=== PATIENT | female | born 1975 | race Caucasian/White ===

== ENCOUNTER 2018-05-14 10:26 | Inpatient (IN) | payer OTHER ==
[2018-05-14] MEDS ORDERED: NACL 0.9% 3 ML SYG IV (11:00)
[2018-05-14] MEDS ORDERED: ONDANSETRON 4 MG INJ IV (11:00)
[2018-05-14] MEDS ORDERED: MAGNESIUM HYDROXIDE 30ML CUP PO (11:00)
[2018-05-14] MEDS ORDERED: ACETAMINOPHEN 325 MG TAB PO (11:00)
[2018-05-14 12:16] LABS: ADD MAN DIFF? NO
[2018-05-14 12:20] LABS: BASOPHILS % 0.5 % (0.0-2.0); EOSINOPHILS # 0.1 10^3/ul (0.0-0.5); EOSINOPHILS % 2.5 % (0.0-7.0); HEMOGLOBIN 12.2 g/dl (12.0-16.0); LYMPHOCYTES # 1.6 10^3/ul (0.8-2.9); LYMPHOCYTES % 37.4 % (15.0-51.0); MEAN CORPUSCULAR HEMOGLOBIN 27.9 pg (29.0-33.0); MEAN CORPUSCULAR HGB CONC 32.1 g/dl (32.0-37.0); MEAN CORPUSCULAR VOLUME 86.8 fl (82.0-101.0); MEAN PLATELET VOLUME 8.8 fl (7.4-10.4); MONOCYTE # 0.3 10^3/ul (0.3-0.9); MONOCYTES % 6.2 % (0.0-11.0); NEUTROPHIL # 2.3 10^3/ul (1.6-7.5); NEUTROPHILS % 53.2 % (39.0-77.0); PLATELET COUNT 315 10^3/UL (140-415); RED BLOOD COUNT 4.38 10^6/ul (4.20-5.40); RED CELL DISTRIBUTION WIDTH 13.3 % (11.5-14.5)
[2018-05-14 12:20] LABS: WHITE BLOOD COUNT 4.4 10^3/ul (4.8-10.8)
[2018-05-14 12:50] LABS: ALANINE AMINOTRANSFERASE 839 IU/L (13-69); ALBUMIN 3.9 g/dl (3.3-4.9); ALBUMIN/GLOBULIN RATIO 1.11; ALKALINE PHOSPHATASE 148 IU/L (42-121); ANION GAP 7 (5-13); ASPARTATE AMINO TRANSFERASE 709 IU/L (15-46); BILIRUBIN,INDIRECT 1.5 mg/dl (0-1.1); BILIRUBIN,TOTAL 1.5 mg/dl (0.2-1.3); BLOOD UREA NITROGEN 9 mg/dl (7-20); CARBON DIOXIDE 29 mmol/L (21-31); CHLORIDE 105 mmol/L (97-110); CREATININE 0.68 mg/dl (0.44-1.00); GLUCOSE 95 mg/dl (70-220); POTASSIUM 4.7 mmol/L (3.5-5.1); SODIUM 141 mmol/L (135-144); TOTAL PROTEIN 7.4 g/dl (6.1-8.1)
[2018-05-14] MEDS: SOD CHLORIDE 0.45% 1,000 ML IV (13:22)
[2018-05-14] MEDS: HYDROCODONE/APAP (5/325) TAB PO (13:22)
[2018-05-14 18:10] LABS: HAAIG REFLEX REFLEX FILED
[2018-05-14 18:39] LABS: INR 0.98; PROTIME 13.1 Sec (11.9-14.9)
[2018-05-14 19:09] LABS: HEPATITIS B SURFACE ANTIGEN NEGATIVE (NEGATIVE)
[2018-05-14 19:25] LABS: ACETAMINOPHEN < 10.0 ug/ml (10.0-30.0)
[2018-05-14 19:27] LABS: HEPATITIS B CORE ANTIBODY NEGATIVE (NEGATIVE); HEPATITIS C VIRAL ANTIBODY NEGATIVE (NEGATIVE)
[2018-05-15] MEDS: HYDROCODONE/APAP (5/325) TAB PO ×2 (01:43→08:55)
[2018-05-15 05:11] LABS: ADD MAN DIFF? NO
[2018-05-15 05:25] LABS: WHITE BLOOD COUNT 4.6 10^3/ul (4.8-10.8)
[2018-05-15 05:25] LABS: BASOPHILS % 0.2 % (0.0-2.0); EOSINOPHILS # 0.2 10^3/ul (0.0-0.5); EOSINOPHILS % 4.1 % (0.0-7.0); HEMOGLOBIN 12.8 g/dl (12.0-16.0); LYMPHOCYTES # 1.2 10^3/ul (0.8-2.9); LYMPHOCYTES % 25.4 % (15.0-51.0); MEAN CORPUSCULAR HEMOGLOBIN 28.4 pg (29.0-33.0); MEAN CORPUSCULAR HGB CONC 32.8 g/dl (32.0-37.0); MEAN CORPUSCULAR VOLUME 86.5 fl (82.0-101.0); MONOCYTE # 0.3 10^3/ul (0.3-0.9); MONOCYTES % 6.5 % (0.0-11.0); NEUTROPHIL # 2.9 10^3/ul (1.6-7.5); NEUTROPHILS % 63.6 % (39.0-77.0); PLATELET COUNT 317 10^3/UL (140-415); RED BLOOD COUNT 4.51 10^6/ul (4.20-5.40); RED CELL DISTRIBUTION WIDTH 13.4 % (11.5-14.5)
[2018-05-15] MEDS: PANTOPRAZOLE (EC) 40 MG TAB PO (05:29)
[2018-05-15] MEDS: SOD CHLORIDE 0.45% 1,000 ML IV (05:29)
[2018-05-15 05:43] LABS: PHOSPHORUS 3.4 mg/dl (2.5-4.9)
[2018-05-15 06:01] LABS: ALBUMIN/GLOBULIN RATIO 0.97; ANION GAP 5 (5-13); BILIRUBIN,TOTAL 2.2 mg/dl (0.2-1.3)
[2018-05-15 06:05] LABS: ALANINE AMINOTRANSFERASE 818 IU/L (13-69); ALKALINE PHOSPHATASE 180 IU/L (42-121); ASPARTATE AMINO TRANSFERASE 584 IU/L (15-46); BILIRUBIN,INDIRECT 1.2 mg/dl (0-1.1); BLOOD UREA NITROGEN 7 mg/dl (7-20); CALCIUM 9.1 mg/dl (8.4-10.2); CARBON DIOXIDE 29 mmol/L (21-31); CHLORIDE 105 mmol/L (97-110); CREATININE 0.61 mg/dl (0.44-1.00); GLUCOSE 110 mg/dl (70-220); POTASSIUM 4.5 mmol/L (3.5-5.1); SODIUM 139 mmol/L (135-144)
[2018-05-15 06:06] LABS: ALBUMIN 3.4 g/dl (3.3-4.9); TOTAL PROTEIN 6.9 g/dl (6.1-8.1)
[2018-05-15 09:14] LABS: AMYLASE 51 U/L (11-123)
[2018-05-15 09:14] LABS: LIPASE 131 U/L (23-300)
[2018-05-15] MEDS: morphine 2 MG INJ IV ×2 (09:27→14:38)
[2018-05-15] MEDS: PIPER-TAZO 3.375 GM IV (PMX) 100 ML IVPB ×3 (09:32→21:45)
[2018-05-15] MEDS ORDERED: INDOMETHACIN 50 MG SUPP PR ×2 (15:45→16:00)
[2018-05-15] MEDS ORDERED: IOHEXOL 300MG/ML 30 ML BTL (15:46)
[2018-05-15] MEDS ORDERED: DEXAMETHASONE 4 MG/ML 1 ML INJ (15:54)
[2018-05-15] MEDS ORDERED: MIDAZOLAM 1 MG/ML 2 ML INJ (15:54)
[2018-05-15] MEDS ORDERED: PROPOFOL 20 ML (15:54)
[2018-05-15] MEDS ORDERED: LIDOCAINE 2% (SDV) 5 ML INJ (15:54)
[2018-05-15] MEDS ORDERED: NEOSTIGMINE 3 MG/3 ML SYRINGE (15:54)
[2018-05-15] MEDS ORDERED: GLYCOPYRROLATE 0.4 MG INJ (15:54)
[2018-05-15] MEDS ORDERED: ROCURONIUM 50 MG INJ (15:54)
[2018-05-15] MEDS ORDERED: ONDANSETRON 4 MG INJ (15:55)
[2018-05-15] MEDS ORDERED: LIDOCAINE 4% CR (15:55)
[2018-05-15] MEDS ORDERED: HYDROmorphONE 1 MG/5 ML IV SYRINGE IV ×3 (16:00)
[2018-05-15] MEDS ORDERED: MEPERIDINE 25 MG INJ IV (16:00)
[2018-05-15] MEDS ORDERED: EPHEDrine SULFATE 50 MG/5 ML SYG IV (16:00)
[2018-05-15] MEDS ORDERED: MIDAZOLAM 1 MG/ML 2 ML INJ IV (16:00)
[2018-05-15] MEDS ORDERED: morphine (1 MG/ML) 10ML SYRINGE IV ×3 (16:00)
[2018-05-15] MEDS ORDERED: ONDANSETRON 4 MG INJ IV (16:00)
[2018-05-15] MEDS ORDERED: OXYCODONE/ACETAMINOPHEN (5/325) TAB PO ×2 (16:00)
[2018-05-15] MEDS ORDERED: hydrALAzine 20 MG INJ IV (16:00)
[2018-05-15] MEDS ORDERED: ATROPINE 1 MG/10 ML SYRINGE IV (16:00)
[2018-05-15] MEDS ORDERED: DIPHENHYDRAMINE 50 MG INJ IV (16:00)
[2018-05-15] MEDS ORDERED: FENTAnyl 50 MCG/ML VIAL IV ×2 (16:00)
[2018-05-15] MEDS ORDERED: LABETALOL HCL 20MG INJ IV (16:00)
[2018-05-15] MEDS: INDOMETHACIN 50 MG SUPP PR (16:30)
[2018-05-15] MEDS ORDERED: FLUMAZENIL 0.5 MG INJ (17:21)
[2018-05-16] MEDS: SOD CHLORIDE 0.45% 1,000 ML IV ×2 (00:11→05:13)
[2018-05-16] MEDS: PIPER-TAZO 3.375 GM IV (PMX) 100 ML IVPB (05:13)
[2018-05-16] MEDS: PANTOPRAZOLE (EC) 40 MG TAB PO (06:28)
[2018-05-16 12:33] LABS: ANION GAP 7 (5-13); BLOOD UREA NITROGEN 8 mg/dl (7-20); CALCIUM 9.8 mg/dl (8.4-10.2); CARBON DIOXIDE 30 mmol/L (21-31); CHLORIDE 105 mmol/L (97-110); CREATININE 0.76 mg/dl (0.44-1.00); GLUCOSE 119 mg/dl (70-220); POTASSIUM 4.4 mmol/L (3.5-5.1); SODIUM 142 mmol/L (135-144)
[2018-05-16 13:10] LABS: ALANINE AMINOTRANSFERASE 593 IU/L (13-69); ALBUMIN 3.6 g/dl (3.3-4.9); ALKALINE PHOSPHATASE 163 IU/L (42-121); ASPARTATE AMINO TRANSFERASE 219 IU/L (15-46); BILIRUBIN,INDIRECT 0.5 mg/dl (0-1.1); BILIRUBIN,TOTAL 0.5 mg/dl (0.2-1.3); TOTAL PROTEIN 7.4 g/dl (6.1-8.1)
== END 2018-05-16 14:23 | disposition left against medical advice (07) | DRG 392 ==
LOC: MS1 10:26
PROC: 0FC98ZZ Extirpation of Matter from Common Bile Duct, Via Natural or Artificial Opening Endoscopic (ICD-10-PCS; principal; 2018-05-15 16:00)
PROC: BF10YZZ Fluoroscopy of Bile Ducts using Other Contrast (ICD-10-PCS; 2018-05-15 16:00)
PROC: 0F798DZ Dilation of Common Bile Duct with Intraluminal Device, Via Natural or Artificial Opening Endoscopic (ICD-10-PCS; 2018-05-15 16:00)
DX: R10.9 Unspecified abdominal pain (principal); K91.86 Retained cholelithiasis following cholecystectomy; E66.9 Obesity, unspecified; Z68.39 Body mass index [BMI] 39.0-39.9, adult; I10 Essential (primary) hypertension; F15.90 Other stimulant use, unspecified, uncomplicated; R79.89 Other specified abnormal findings of blood chemistry
CPT/HCPCS: 74176; 74330; 80048; 80053; 80076; 80307; 82150; 83690; 83735; 84100; 84703; 85025; 85610; 86704; 86709; 86803; 87081; 87340

== ENCOUNTER 2018-05-17 20:40 | Emergency (ER) | payer OTHER ==
[2018-05-17 22:06] LABS: ADD MAN DIFF? NO
[2018-05-17 22:10] LABS: BASOPHILS % 0.4 % (0.0-2.0); EOSINOPHILS # 0.2 10^3/ul (0.0-0.5); EOSINOPHILS % 1.5 % (0.0-7.0); HEMATOCRIT 40.6 % (37.0-47.0); HEMOGLOBIN 13.2 g/dl (12.0-16.0); LYMPHOCYTES # 3.8 10^3/ul (0.8-2.9); LYMPHOCYTES % 34.5 % (15.0-51.0); MEAN CORPUSCULAR HEMOGLOBIN 27.7 pg (29.0-33.0); MEAN CORPUSCULAR HGB CONC 32.5 g/dl (32.0-37.0); MEAN CORPUSCULAR VOLUME 85.1 fl (82.0-101.0); MEAN PLATELET VOLUME 9.1 fl (7.4-10.4); MONOCYTE # 0.7 10^3/ul (0.3-0.9); MONOCYTES % 6.7 % (0.0-11.0); NEUTROPHIL # 6.2 10^3/ul (1.6-7.5); NEUTROPHILS % 56.4 % (39.0-77.0); PLATELET COUNT 348 10^3/UL (140-415); RED BLOOD COUNT 4.77 10^6/ul (4.20-5.40); RED CELL DISTRIBUTION WIDTH 13.7 % (11.5-14.5)
[2018-05-17] MEDS: KETOROLAC 30 MG INJ IV (22:13)
[2018-05-17 22:33] LABS: ALANINE AMINOTRANSFERASE 424 IU/L (13-69); ALBUMIN 3.6 g/dl (3.3-4.9); ALKALINE PHOSPHATASE 146 IU/L (42-121); ANION GAP 12 (5-13); ASPARTATE AMINO TRANSFERASE 106 IU/L (15-46); BILIRUBIN,INDIRECT 0.2 mg/dl (0-1.1); BILIRUBIN,TOTAL 0.2 mg/dl (0.2-1.3); BLOOD UREA NITROGEN 9 mg/dl (7-20); CALCIUM 9.9 mg/dl (8.4-10.2); CARBON DIOXIDE 27 mmol/L (21-31); CHLORIDE 102 mmol/L (97-110); CREATININE 0.56 mg/dl (0.44-1.00); GLUCOSE 96 mg/dl (70-220); LIPASE 83 U/L (23-300); POTASSIUM 4.1 mmol/L (3.5-5.1); SODIUM 141 mmol/L (135-144); TOTAL PROTEIN 7.6 g/dl (6.1-8.1)
== END 2018-05-17 23:25 | disposition home or self-care (01) ==
LOC: E/R 20:40
DX: R10.13 Epigastric pain (principal); J45.909 Unspecified asthma, uncomplicated
CPT/HCPCS: 36415; 80053; 81025; 83690; 85025; 96374; 99284-25

== ENCOUNTER 2018-08-26 01:58 | Emergency (ER) | payer OTHER ==
[2018-08-26] MEDS: KETOROLAC 30 MG INJ IV (02:13)
[2018-08-26] MEDS: ONDANSETRON 4 MG INJ IV (02:46)
[2018-08-26] MEDS: SOD CHLORIDE 0.9% 1,000 ML IV (02:46)
[2018-08-26 02:59] LABS: ADD MAN DIFF? NO
[2018-08-26 03:00] LABS: BASOPHILS % 0.3 % (0.0-2.0); EOSINOPHILS # 0.2 10^3/ul (0.0-0.5); HEMATOCRIT 38.8 % (37.0-47.0); HEMOGLOBIN 12.6 g/dl (12.0-16.0); LYMPHOCYTES # 2.4 10^3/ul (0.8-2.9); MEAN CORPUSCULAR HGB CONC 32.5 g/dl (32.0-37.0); MEAN CORPUSCULAR VOLUME 86.2 fl (82.0-101.0); MONOCYTE # 0.5 10^3/ul (0.3-0.9); MONOCYTES % 7.6 % (0.0-11.0); NEUTROPHIL # 3.4 10^3/ul (1.6-7.5); NEUTROPHILS % 51.8 % (39.0-77.0); PLATELET COUNT 305 10^3/UL (140-415); RED CELL DISTRIBUTION WIDTH 13.2 % (11.5-14.5)
[2018-08-26 03:00] LABS: WHITE BLOOD COUNT 6.6 10^3/ul (4.8-10.8)
[2018-08-26 03:15] LABS: ADD UMIC YES; UR ASCORBIC ACID NEGATIVE (NEGATIVE); UR BILIRUBIN (Dip) NEGATIVE (NEGATIVE); UR BLOOD (Dip) NEGATIVE (NEGATIVE); UR CLARITY SLIGHTLY CLOUDY (CLEAR); UR COLOR YELLOW (YELLOW); UR GLUCOSE (Dip) NEGATIVE (NEGATIVE); UR KETONES (Dip) NEGATIVE (NEGATIVE); UR LEUKOCYTE ESTERASE (Dip) TRACE Leu/ul (NEGATIVE); UR MUCUS FEW /HPF (NONE SEEN); UR NITRITE (Dip) NEGATIVE (NEGATIVE); UR RBC 0 /HPF (0-5); UR SPECIFIC GRAVITY (Dip) 1.023 (1.003-1.030); UR SQUAMOUS EPITHELIAL CELL FEW /HPF (FEW); UR TOTAL PROTEIN (Dip) 1+ mg/dl (NEGATIVE); UR UROBILINOGEN (Dip) NEGATIVE (NEGATIVE); UR WBC 3 /HPF (0-5)
[2018-08-26 03:19] LABS: ALANINE AMINOTRANSFERASE 22 IU/L (13-69); ALBUMIN 4.1 g/dl (3.3-4.9); ALBUMIN/GLOBULIN RATIO 1.17; ALKALINE PHOSPHATASE 62 IU/L (42-121); ANION GAP 11 (5-13); ASPARTATE AMINO TRANSFERASE 27 IU/L (15-46); BLOOD UREA NITROGEN 14 mg/dl (7-20); CALCIUM 9.6 mg/dl (8.4-10.2); CARBON DIOXIDE 30 mmol/L (21-31); CHLORIDE 101 mmol/L (97-110); CREATININE 0.79 mg/dl (0.44-1.00); Estimated GFR > 60 mL/min (>60); GLUCOSE 100 mg/dl (70-220); LIPASE 112 U/L (23-300); SODIUM 142 mmol/L (135-144); TOTAL PROTEIN 7.6 g/dl (6.1-8.1)
[2018-08-26 03:24] LABS: POTASSIUM 4.1 mmol/L (3.5-5.1)
== END 2018-08-26 04:18 | disposition home or self-care (01) ==
LOC: E/R 01:58
DX: R10.13 Epigastric pain (principal); J45.909 Unspecified asthma, uncomplicated
CPT/HCPCS: 36415; 80053; 81001; 83690; 84703; 85025; 96374; 96375; 99284-25

== ENCOUNTER 2019-02-01 20:09 | Emergency (ER) | payer OTHER ==
[2019-02-01 22:02] LABS: URINE BLOOD (Dip) POC Trace-intact (NEGATIVE); URINE GLUCOSE (Dip) POC Negative (NEGATIVE); URINE KETONES (Dip) POC Negative (NEGATIVE); URINE LEUKOCYTE EST (Dip) POC Negative (NEGATIVE); URINE NITRITE (Dip) POC Negative (NEGATIVE); URINE TOTAL PROTEIN POC 1+ (NEGATIVE)
[2019-02-01] MEDS: morphine 4 MG/ML VIAL IV (22:04)
[2019-02-01] MEDS: ONDANSETRON 4 MG INJ IV (22:04)
[2019-02-01] MEDS: SOD CHLORIDE 0.9% 500 ML IV (22:04)
[2019-02-01 22:12] LABS: ADD MAN DIFF? NO
[2019-02-01 22:15] LABS: BASOPHILS % 0.3 % (0.0-2.0); EOSINOPHILS # 0.3 10^3/ul (0.0-0.5); EOSINOPHILS % 2.8 % (0.0-7.0); HEMATOCRIT 43.1 % (37.0-47.0); HEMOGLOBIN 14.1 g/dl (12.0-16.0); LYMPHOCYTES # 3.2 10^3/ul (0.8-2.9); LYMPHOCYTES % 29.8 % (15.0-51.0); MEAN CORPUSCULAR HGB CONC 32.7 g/dl (32.0-37.0); MEAN CORPUSCULAR VOLUME 85.5 fl (82.0-101.0); MEAN PLATELET VOLUME 9.3 fl (7.4-10.4); MONOCYTE # 0.8 10^3/ul (0.3-0.9); MONOCYTES % 7.1 % (0.0-11.0); NEUTROPHIL # 6.4 10^3/ul (1.6-7.5); NEUTROPHILS % 59.6 % (39.0-77.0); PLATELET COUNT 349 10^3/UL (140-415); RED BLOOD COUNT 5.04 10^6/ul (4.20-5.40); RED CELL DISTRIBUTION WIDTH 13.1 % (11.5-14.5)
[2019-02-01 22:15] LABS: WHITE BLOOD COUNT 10.8 10^3/ul (4.8-10.8)
[2019-02-01 22:21] LABS: ADD UMIC YES; UR ASCORBIC ACID NEGATIVE (NEGATIVE); UR BILIRUBIN (Dip) NEGATIVE (NEGATIVE); UR BLOOD (Dip) NEGATIVE (NEGATIVE); UR CLARITY CLEAR (CLEAR); UR COLOR YELLOW (YELLOW); UR GLUCOSE (Dip) NEGATIVE (NEGATIVE); UR KETONES (Dip) NEGATIVE (NEGATIVE); UR LEUKOCYTE ESTERASE (Dip) NEGATIVE Leu/ul (NEGATIVE); UR MUCUS FEW /HPF (NONE SEEN); UR NITRITE (Dip) NEGATIVE (NEGATIVE); UR RBC 0 /HPF (0-5); UR SPECIFIC GRAVITY (Dip) 1.011 (1.003-1.030); UR SQUAMOUS EPITHELIAL CELL FEW /HPF (FEW); UR TOTAL PROTEIN (Dip) 1+ mg/dl (NEGATIVE); UR UROBILINOGEN (Dip) NEGATIVE (NEGATIVE); UR WBC 1 /HPF (0-5)
[2019-02-01 22:36] LABS: INR 0.85; PROTIME 11.7 Sec (11.9-14.9); PT RATIO 0.9
[2019-02-01 22:37] LABS: ALANINE AMINOTRANSFERASE 16 IU/L (13-69); ALBUMIN 4.2 g/dl (3.3-4.9); ALKALINE PHOSPHATASE 67 IU/L (42-121); ANION GAP 11 (5-13); ASPARTATE AMINO TRANSFERASE 28 IU/L (15-46); BILIRUBIN,INDIRECT 0.2 mg/dl (0-1.1); BILIRUBIN,TOTAL 0.2 mg/dl (0.2-1.3); BLOOD UREA NITROGEN 7 mg/dl (7-20); CALCIUM 9.6 mg/dl (8.4-10.2); CARBON DIOXIDE 25 mmol/L (21-31); CHLORIDE 105 mmol/L (97-110); CREATININE 0.55 mg/dl (0.44-1.00); Estimated GFR > 60 mL/min (>60); GLUCOSE 99 mg/dl (70-220); LIPASE 96 U/L (23-300); PARTIAL THROMBOPLASTIN TIME 25.3 Sec (23.0-35.0); POTASSIUM 4.1 mmol/L (3.5-5.1); SODIUM 141 mmol/L (135-144)
[2019-02-02] MEDS: LIDOCAINE/MYLANTA 40 ML BTL PO (02:43)
== END 2019-02-02 03:10 | disposition home or self-care (01) ==
LOC: E/R 02-02 03:10
DX: R10.13 Epigastric pain (principal); R11.10 Vomiting, unspecified
CPT/HCPCS: 36415; 71045; 74176; 80053; 81001; 81003; 81025; 83690; 85025; 85610; 85730; 96374; 96375; 99285-25

== ENCOUNTER 2019-04-14 18:45 | Emergency (ER) | payer SELFPAY, OTHER ==
[2019-04-14 19:53] LABS: ADD MAN DIFF? NO
[2019-04-14 19:55] LABS: BASOPHILS % 0.5 % (0.0-2.0); EOSINOPHILS # 0.3 10^3/ul (0.0-0.5); HEMATOCRIT 41.4 % (37.0-47.0); HEMOGLOBIN 13.3 g/dl (12.0-16.0); LYMPHOCYTES # 2.7 10^3/ul (0.8-2.9); LYMPHOCYTES % 35.7 % (15.0-51.0); MEAN CORPUSCULAR HGB CONC 32.1 g/dl (32.0-37.0); MEAN CORPUSCULAR VOLUME 87.2 fl (82.0-101.0); MEAN PLATELET VOLUME 9.2 fl (7.4-10.4); MONOCYTE # 0.5 10^3/ul (0.3-0.9); MONOCYTES % 6.1 % (0.0-11.0); NEUTROPHILS % 53.6 % (39.0-77.0); PLATELET COUNT 337 10^3/UL (140-415); RED BLOOD COUNT 4.75 10^6/ul (4.20-5.40)
[2019-04-14 19:55] LABS: WHITE BLOOD COUNT 7.5 10^3/ul (4.8-10.8)
[2019-04-14 19:56] LABS: ADD UMIC YES; UR ASCORBIC ACID NEGATIVE (NEGATIVE); UR BACTERIA FEW /HPF (NONE SEEN); UR BILIRUBIN (Dip) NEGATIVE (NEGATIVE); UR BLOOD (Dip) NEGATIVE (NEGATIVE); UR CLARITY SLIGHTLY CLOUDY (CLEAR); UR COLOR YELLOW (YELLOW); UR GLUCOSE (Dip) NEGATIVE (NEGATIVE); UR KETONES (Dip) NEGATIVE (NEGATIVE); UR LEUKOCYTE ESTERASE (Dip) 2+ Leu/ul (NEGATIVE); UR MUCUS MODERATE /HPF (NONE SEEN); UR NITRITE (Dip) NEGATIVE (NEGATIVE); UR RBC 4 /HPF (0-5); UR SPECIFIC GRAVITY (Dip) 1.028 (1.003-1.030); UR SQUAMOUS EPITHELIAL CELL MODERATE /HPF (FEW); UR TOTAL PROTEIN (Dip) 2+ mg/dl (NEGATIVE); UR UROBILINOGEN (Dip) NEGATIVE (NEGATIVE); UR WBC 4 /HPF (0-5)
[2019-04-14 20:23] LABS: ALANINE AMINOTRANSFERASE 26 IU/L (13-69); ALBUMIN/GLOBULIN RATIO 1.08; ALKALINE PHOSPHATASE 66 IU/L (42-121); ANION GAP 12 (5-13); ASPARTATE AMINO TRANSFERASE 25 IU/L (15-46); BILIRUBIN,INDIRECT 0.5 mg/dl (0-1.1); BILIRUBIN,TOTAL 0.5 mg/dl (0.2-1.3); BLOOD UREA NITROGEN 10 mg/dl (7-20); CALCIUM 9.3 mg/dl (8.4-10.2); CARBON DIOXIDE 26 mmol/L (21-31); CHLORIDE 104 mmol/L (97-110); CREATININE 0.66 mg/dl (0.44-1.00); Estimated GFR > 60 mL/min (>60); GLUCOSE 107 mg/dl (70-220); LIPASE 63 U/L (23-300); POTASSIUM 3.7 mmol/L (3.5-5.1); SODIUM 142 mmol/L (135-144); TOTAL PROTEIN 7.7 g/dl (6.1-8.1)
== END 2019-04-14 21:05 | disposition home or self-care (01) ==
LOC: E/R 18:45
DX: N39.0 Urinary tract infection, site not specified (principal); J45.909 Unspecified asthma, uncomplicated
CPT/HCPCS: 36415; 76705; 80053; 81001; 83690; 84703; 85025; 99284-25